=== PATIENT | male | born 1980 | race Two or more races ===

== ENCOUNTER 2017-08-13 11:15 | Emergency (ER) | payer BC ==
[~2017-08-13] VITALS: Ht 167.6 cm; Wt 86.2 kg
[2017-08-13 13:01] VITALS: BP 120/87
== END 2017-08-13 14:17 | disposition home or self-care (01) ==
LOC: ER 11:15
DX: J02.9 Acute pharyngitis, unspecified (principal)

== ENCOUNTER → 2017-12-01 | Emergency (ER) | payer BC, OTHER | END | disposition left against medical advice (07) | LOC: ER 17:02 | DX: S61.214A Laceration without foreign body of right ring finger without damage to nail, initial encounter (principal); Z53.21 Procedure and treatment not carried out due to patient leaving prior to being seen by health care provider; X58.XXXA Exposure to other specified factors, initial encounter; Y93.89 Activity, other specified; Y99.8 Other external cause status; Y92.89 Other specified places as the place of occurrence of the external cause ==